=== PATIENT | male | born 1960 | race African-American/Black ===

== ENCOUNTER 2022-02-14 08:06 | Day surgery (SDC) | payer BC ==
[2022-02-13 12:21] VITALS: BMI 31.1
[2022-02-14 10:42] VITALS: TEMP 98
[2022-02-14 10:45] VITALS: BP 109/67; PULSE 68
== END 2022-02-14 10:30 | disposition home or self-care (01) ==
LOC: FASU-ENDO 08:06
PROVIDERS: ATTEND Internal Medicine Gastroenterology
PROC: 0DJD8ZZ Inspection of Lower Intestinal Tract, Via Natural or Artificial Opening Endoscopic (ICD-10-PCS; principal; 2022-02-14 09:43)
DX: Z12.11 Encounter for screening for malignant neoplasm of colon (principal)